=== PATIENT | male | born 1985 ===

== ENCOUNTER 2025-02-23 11:07 | Emergency (ER) | payer SELFPAY ==
[2025-02-23 11:08] VITALS: BP 121/88; PULSE 76; RESP 16; TEMP 36.9; O2SAT 98; BMI 21.8
--- NOTE | 2025-02-23 11:59 | ED.RN ---
Pt came came out of room to ask for blanket. This RN went to room, introduced self as his nurse and asked him to put on a gown in order to be placed on cardiac cath lab radiology technologist. Pt started cursing and yelling at this RN stating he was cold, and only wanted a blanket. This RN attempted to explain plan of care while getting out a blanket, pt continues yelling and cursing all I wanted was a fucking blanket, you guys are fucking useless Pt got out of bed and left department still cursing and yelling.
== END 2025-02-23 12:20 | disposition left against medical advice (07) ==
LOC: ED 12:19
DX: J00 Acute nasopharyngitis [common cold] (principal); Z53.21 Procedure and treatment not carried out due to patient leaving prior to being seen by health care provider
CPT/HCPCS: 99282